=== PATIENT | male | born 2005 | race African-American/Black ===

== ENCOUNTER 2023-06-19 00:24 | Emergency (ER) | payer OTHER, SELFPAY ==
--- NOTE | ~2023-06-19 | XR_ITS ---
XR chest 2V DATE: 06/19/2023 01:13 INDICATION: Left-sided chest pain for 3 days TECHNIQUE: Portable upright AP chest on 06/19/2023 at 0110 hours COMPARISON: None FINDINGS: Prominent S-shaped thoracolumbar scoliosis. Normal heart size. No hilar or mediastinal enlargement. No pulmonary infiltrate or consolidation, ple ural effusion or pulmonary vascular congestion or pneumothorax. IMPRESSION: No active cardiopulmonary disease Prominent S-shaped thoracolumbar scoliosis Reviewed, dictated and finalized at location A.
[2023-06-19 00:31] VITALS: BP 165/67; PULSE 81; RESP 17; TEMP 36.3; O2SAT 100
--- NOTE | 2023-06-19 00:31 | ECG_ITS ---
Measurements Intervals [place] Rate: 85 P: 11 IN: 165 QRS: 26 QRSD: 96 T: 22 QT: 322 QTc: 383 Interpretive Statements SINUS RHYTHM NONSPECIFIC T-WAVE ABNORMALITY BORDERLINE ECG NO PREVIOUS ECG AVAILABLE FOR COMPARISON Electronically Signed On 06-19-2023 13:41:08 CDT by Abdoul Page M.D.
[2023-06-19 00:35] VITALS: PULSE 103; RESP 14; O2SAT 99
[2023-06-19 00:36] VITALS: BP 165/67; PULSE 79; RESP 14; O2SAT 100
[2023-06-19 00:50] LABS: Basophils Absolute Auto 0.1 K/mm3 (0.0-0.1); Basophils Percent Auto 0.6 % (0.2-1.2); Eosinophils Absolute Auto 0.3 K/mm3 (0-0.3); Eosinophils Percent Auto 3.5 % (0-4.4); Hematocrit 46.9 % (42.0-52.0); Hemoglobin 13.9 g/dL (14.0-18.0); Immature Granulocyte Absolute 0.03 K/mm3 (0.00-0.031); Immature Granulocyte Percent A 0.3 % (0-0.5); Lymphocytes Absolute Auto 2.11 K/mm3 (0.9-3.2); Lymphocytes Percent Auto 24.4 % (18.3-44.2); Mean Corpuscular HGB Conc 29.6 g/dl (32-36); Mean Corpuscular Hemoglobin 23.6 pg (26-34); Mean Corpuscular Volume 79.5 fl (80-100); Mean Platelet Volume 10.7 fl (7.4-10.4); Monocytes Absolute Auto 0.7 K/mm3 (0.1-0.6); Neutrophils Absolute Auto 5.5 K/mm3 (1.3-6.7); Neutrophils Percent Auto 63.2 % (45.5-73.1); Platelet Count Result 302 k/mm3 (150-375); Red Cell Distribution Width 13.2 % (11.5-14.5); White Blood Count 8.6 K/mm3 (4.5-10.0)
--- NOTE | 2023-06-19 00:58 | ED.CHESTPAIN ---
HPI - Chest Pain General Chief Complaint: Chest Pain Stated Complaint: Chest pain Time Seen by Provider: 06/19/23 00:49 Source: patient Mode of arrival: ambulatory Limitations: no limitations History of Present Illness HPI narrative: 18-year-old male presenting to emergency department for chest pain ongoing for the last 4 days. Says it feels pretty constant and very mild feels like it is something there in his chest but after he eats it starts getting a bit worse. He thinks his acid reflux wanted to get checked out. He gets worse within an hour to after eating and then goes away after a few hours. No vomiting. Normal bowel movements. Normal urination. No shortness of breath. No prior significant medical history. All other symptoms and complaints are negative as per ROS. Related Data Allergies Allergy/AdvReac Type Severity Reaction Status Date / Time seafood Allergy Other Uncoded 06/19/23 00:36 Review of Systems Review of Systems: All systems reviewed & are unremarkable except as noted in HPI and below Exam Narrative: Constitutional: Generally well appearing, no acute distress Head: Atraumatic, no deformities. Eyes: Pupils equal, round, and reactive to light. Neck: Supple, no tracheal deviation, no JVD. ENMT: Mucous membranes moist Cardiovascular: S1, S2 auscultated. No murmurs, rubs, or gallops. No S3/S4. Normal Distal pulses. No peripheral edema. No chest wall tenderness. Respiratory: Lung sounds equal. No wheezes, rales, or rhonchi. Gastrointestinal: Abdomen was soft and non-tender. Non-distended. No rebound or guarding. Genitourinary: Deferred Musculoskeletal: Normal muscle tone and bulk. No obvious deformities or tenderness over extremities. Skin: No rashes. Neurological: Strength 5/5 in extremities. Cranial nerves I-XII grossly intact. Distal sensation intact. Mental Status: Awake, alert and oriented x3. Follows commands Course Vital Signs Vital signs: Vital Signs Temperature 36.3 C L 06/19/23 00:31 Pulse Rate 81 06/19/23 00:31 Respiratory Rate 17 06/19/23 00:31 Blood Pressure 165/67 H 06/19/23 00:31 Pulse Oximetry 100 06/19/23 00:31 Oxygen Delivery Room Air 06/19/23 00:31 Temperature 36.3 C L 06/19/23 00:31 Pulse Rate 81 06/19/23 00:31 Respiratory Rate 17 06/19/23 00:31 Blood Pressure 165/67 H 06/19/23 00:31 Pulse Oximetry 100 06/19/23 00:31 Oxygen Delivery Room Air 06/19/23 00:37 MDM - Chest Pain MDM Narrative Medical decision making narrative: 18-year-old male here with some chest pain has been on and off for the last 4 days. Typically associated with eating it is worse after eating. He thinks it is acid reflux. On exam is slightly hypertensive otherwise regular vital signs and generally well appearing. Cardio respiratory exam is benign otherwise. Suspect likely GERD versus gastritis less likely than a ACS But will work him up for ACS and get a chest x-ray. Chest x-ray read and interpreted by me showing no focal abnormalities. Labs reviewed and interpreted showing no focal abnormalities. Troponin was negative. Highly suspect GERD as patient did significantly improve after his GI cocktail. Will discharge him at this point with famotidine and Maalox. Patient is agreeable with the plan. So is his mother. Pt feeling improved and would like to go home at this point. Return precautions were given to the patient include any new or worsening symptoms or development of and not limited to any chest pain, shortness of breath, lightheadedness, abdominal pain, fevers, chills. Patient understands and agrees. They are to follow-up with her PCP. All questions were answered. Medical Records Data Attestation: I reviewed the patient's medical records. Lab Data Attestation: I reviewed the patient's lab results. 06/19/23 00:38 06/19/23 00:38 Labs: Lab Results 06/19/23 Range/Units 00:38 WBC Pending RBC Pen
[2023-06-19 01:01] LABS: INR 0.9; Prothrombin Time 12.1 Seconds (11.1-14.7)
[2023-06-19 01:02] LABS: Partial Thromboplastin Time 30.6 SECONDS (22.3-36.8)
[2023-06-19] MEDS: BELLADONNA ALK/PHENOB ELIX 10 ML, MAG HYDROX/ALUMINUM HYD/SIMETH 30 ML, LIDOCAINE HCL 2... PO (01:04)
[2023-06-19 01:06] LABS: Alanine Aminotransferase 17 U/L (6-50); Albumin Level 4.8 g/dL (3.5-5.1); Alkaline Phosphatase 122 U/L (38-126); Anion Gap 12 mmol/L (8-16); Aspartate Amino Transferase 26 U/L (17-59); Bilirubin,Total 0.6 mg/dL (0.2-1.3); Blood Urea Nitrogen 12 mg/dL (9-20); Calcium 9.6 mg/dL (8.4-10.2); Carbon Dioxide 25 mmol/L (22-30); Chloride 102 mmol/L (98-107); Estimated CRCL calculation 163 ml/min; Estimated Glomerular Filt Rate > 60; Glucose 90 mg/dL (65-110); Lipase 46 U/L (23-300); Sodium 139 mmol/L (137-145)
[2023-06-19 01:10] VITALS: BP 134/78; PULSE 81; RESP 13; O2SAT 100
[2023-06-19 01:17] LABS: Troponin I < 0.012 ng/mL (0.000-0.034)
[2023-06-19 01:53] VITALS: BP 130/64; PULSE 78; RESP 15; O2SAT 100
== END 2023-06-19 01:54 | disposition home or self-care (01) ==
PROVIDERS: Emergency Provider Emergency Medicine
DX: R07.89 Other chest pain (principal); K21.9 Gastro-esophageal reflux disease without esophagitis
CPT/HCPCS: 36415; 71046; 80053; 83690; 84484; 85025; 85610; 85730; 93005; 99284; A9270